=== PATIENT | male | born 1990 | race Hispanic/Latino ===

== ENCOUNTER 2019-02-14 10:03 | Observation (INO) | payer OTHER ==
[~2019-02-14] VITALS: Ht 170.2 cm; Wt 83.5 kg
[2019-02-14] MEDS ORDERED: ONDANSETRON HCL 4 MG/2 ML VIAL ONE (10:39)
[2019-02-14] MEDS ORDERED: CEFAZOLIN SODIUM 1 GM VIAL ONE ×2 (10:39→19:44)
[2019-02-14] MEDS ORDERED: MORPHINE SULFATE 4 MG/1ML SYG ONE (10:40)
[2019-02-14 11:01] LABS: BASOPHILS % (AUTO) 0.5 % (0.0-5.0); EOSINOPHILS % (AUTO) 0.2 % (0.0-8.0); HEMATOCRIT 44.8 % (42-54); MEAN CORPUSCULAR HEMOGLOBIN 29.3 pg (27.0-33.0); MEAN CORPUSCULAR HGB CONC 34.8 g/dL (32.0-36.0); NEUTROPHILS % (AUTO) 74.3 % (40.0-77.0); PLATELET COUNT (AUTO) 198 K/uL (130-400); RED BLOOD CELL COUNT(AUTO) 5.33 MIL/uL (4.50-6.20); RED CELL DISTRIBUTION WIDTH 13.2 % (11.0-15.5); WHITE BLOOD COUNT (AUTO) 7.6 K/uL (4.8-10.8)
[2019-02-14] MEDS ORDERED: TETANUS/DIPHTHERIA TOXOID [ADULT] 0.5 ML VIAL IM ONE (11:04)
[2019-02-14 11:06] LABS: AMPHET/METH SCREEN,URINE NEGATIVE (NEGATIVE); BARBITURATE SCREEN, URINE NEGATIVE (NEGATIVE); BENZODIAZEPINES SCREEN,URINE NEGATIVE (NEGATIVE); CANNABINOID SCREEN,URINE NEGATIVE (NEGATIVE); COCAINE SCREEN,URINE NEGATIVE (NEGATIVE); OPIATE SCREEN,URINE NEGATIVE (NEGATIVE); PHENCYCLIDINE SCREEN,URINE NEGATIVE (NEGATIVE)
[2019-02-14 11:15] LABS: CARBON DIOXIDE 26 mmol/L (21-32); CHLORIDE 102 mmol/L (101-111); CREATININE 1.2 mg/dL (0.5-1.5); GLOMERULAR FILTR. RATE CALC 76 mL/min (>60); GLUCOSE,RANDOM 110 mg/dL (70-105); POTASSIUM 3.8 mmol/L (3.5-5.1); SODIUM SERUM 137 mmol/L (136-145); UREA NITROGEN, BLOOD 19 mg/dL (7-18)
[2019-02-14 11:20] LABS: ALANINE AMINOTRANSFERASE 32 U/L (12-78); ALBUMIN 4.5 g/dL (3.5-5.0); ASPARTATE AMINOTRANSFERASE 28 U/L (10-37); BILIRUBIN,TOTAL 0.7 mg/dL (0.2-1.0); TOTAL PROTEIN, SERUM 7.9 g/dL (6.0-8.3)
[2019-02-14 11:21] LABS: ACETAMINOPHEN < 1 mcg/mL (10-29); ALCOHOL, BLOOD < 3 mg/dL (0-10); SALICYLATE < 2.8 mg/dL (2.8-20.0)
[2019-02-14] MEDS ORDERED: LIDOCAINE HCL 1% 20 ML VIAL ONE ×2 (11:44→11:45)
[2019-02-14] MEDS ORDERED: OCTYL 2-CYANOACRYLATE 1 EACH TP ONE ×2 (11:55→12:22)
[2019-02-14] MEDS ORDERED: ACETAMINOPHEN-CODEINE 300/30MG TAB PO PRN (15:00)
[2019-02-14] MEDS ORDERED: MORPHINE SULFATE 2 MG/ML 1ML SYG IVP PRN (15:00)
[2019-02-14] MEDS ORDERED: CEFAZOLIN SODIUM 1 GM VIAL IVP SCH (18:00)
[2019-02-14] MEDS ORDERED: ACETAMINOPHEN-CODEINE 300/30MG TAB ONE (20:25)
[2019-02-15] VITALS (15 sets, daily range): BP systolic 99–130; BP diastolic 44–82
[2019-02-15] MEDS ORDERED: CEFAZOLIN SODIUM 1 GM VIAL ONE ×3 (03:30→13:40)
[2019-02-15] MEDS ORDERED: MIDAZOLAM HCL 1 MG/ML 2ML VIAL ONE (13:37)
[2019-02-15] MEDS ORDERED: DEXAMETHASONE SOD PHOSPHATE 10MG/ML 1ML VIAL ONE (13:37)
[2019-02-15] MEDS ORDERED: PROPOFOL 10 MG/ML 20ML VIAL IV ONE (13:37)
[2019-02-15] MEDS ORDERED: ONDANSETRON HCL 4 MG/2 ML VIAL ONE (13:38)
[2019-02-15] MEDS ORDERED: FENTANYL CITRATE PF 50 MCG/1 ML 2ML VIAL ONE (13:38)
[2019-02-15] MEDS ORDERED: BACITRACIN 50,000 UNIT VIAL ONE (13:40)
[2019-02-15] MEDS ORDERED: LIDOCAINE PF 2% 5ML ABBOJECT ONE (13:40)
[2019-02-15] MEDS ORDERED: PHENYLEPHRINE HCL 10 MG/ML 1ML VIAL IV ONE (13:49)
[2019-02-15] MEDS ORDERED: MEPERIDINE-PF 25 MG/ML SYG ONE (15:27)
--- NOTE | 2019-02-15 15:36 | NUR ---
FOLLOW UP PER QI FOR CONTINUOUS OBSERVATION. PT DENIES SUICIDAL IDEATION THIS TIME. WILL CONTINUE TO MONITOR. Addendum: 02/15/19 at 1557 by ONI ASH RN RN Amended: Links added.
--- NOTE | 2019-02-15 17:25 | NUR ---
PT DISCHARGED HOME, TOLERATING FLUIDS, AMBULATING WELL, VOIDED PRIOR TO DISCHARGE, DENIES ANY SEVERE PAIN, NAUSEA OR DIZZINESS. LEFT ARM REMAINS IN SLING WITH KATHI WRAP, NO BLEEDING/DRAINAGE NOTED, SINGS OF GOOD CIRCULATION TO FINGERS PRESENT, PT MOVES FINGERS WELL. PT PLEASANT IN NATURE, COOPERATIVE, DOES NOT REPORT ANY SUICIDAL THOUGHTS, ASKING APPROPRIATE QUESTIONS ABOUT DISCHARGE INSTRUCTIONS. DAD PRESENT FOR DISCHARGE INSTRUCTIONS. DAD OR PT DOES NOT REPORT ANY FURTHER QUESTIONS. PRESCRIPTION CALLED IN BY BETITO WALKER TO [facility] AT [facility]. PT AND DAD NOTIFIED THAT PRESCRIPTION WAS CALLED IN.
== END 2019-02-15 17:25 | disposition home or self-care (01) ==
LOC: EDH 10:03 → EDHIP 10:04
PROVIDERS: ADMIT Surgery Plastic and Reconstructive Surgery; ATTEND Surgery Plastic and Reconstructive Surgery
DX: S51.812A Laceration without foreign body of left forearm, initial encounter (principal); X58.XXXA Exposure to other specified factors, initial encounter; Y93.89 Activity, other specified; Y92.89 Other specified places as the place of occurrence of the external cause; Y99.8 Other external cause status; Z79.899 Other long term (current) drug therapy
CPT/HCPCS: 13121; 36415; 73090; 73130; 80053; 80305; 85025; 90471; 90714; 99284; A4930 ×4; G0168; G0378 ×27; G0480 ×2; G0481; J0690 ×5; J1100; J2001; J2175; J2250; J2270; J2370; J2405 ×2; J2704; J3010; J7030; J7120

== ENCOUNTER 2023-10-05 14:40 | Emergency (ER) | payer OTHER ==
[~2023-10-05] VITALS: Ht 172.7 cm; Wt 97.5 kg
[2023-10-05 14:50] VITALS: BP 192/142; PULSE 99; RESP 18
[2023-10-05] MEDS ORDERED: TETANUS/DIPHTHERIA TOXOID [ADULT] 0.5 ML VIAL IM ONE (15:30)
[2023-10-05] MEDS ORDERED: HYDROCODONE/ACETAMINOPHEN 5/325 MG TAB PO ONE (16:30)
[2023-10-05] MEDS ORDERED: IBUPROFEN 800 MG TAB PO ONE (16:30)
[2023-10-05] MEDS ORDERED: BACITRACIN 1 EACH PACKET TP ONE (16:49)
[2023-10-05] MEDS ORDERED: AMOX1TAB16 PO (16:52)
[2023-10-05] MEDS ORDERED: IBUP-2077 PO (16:52)
[2023-10-05] MEDS ORDERED: MUPI22OI2 TP (16:56)
[2023-10-05] MEDS ORDERED: AMOX/CLAV 875/125MG TAB PO ONE (17:00)
== END 2023-10-05 17:12 | disposition home or self-care (01) ==
LOC: EDH 14:40
DX: S61.432A Puncture wound without foreign body of left hand, initial encounter (principal); Z79.899 Other long term (current) drug therapy; W54.0XXA Bitten by dog, initial encounter; Y93.89 Activity, other specified; Y92.89 Other specified places as the place of occurrence of the external cause; Y99.8 Other external cause status
CPT/HCPCS: 73130; 90471; 90714